=== PATIENT | female | born 1960 | race Caucasian/White ===

== ENCOUNTER 2020-02-06 08:49 | Day surgery (SDC) | payer BC ==
[2020-02-02 09:21] VITALS: BMI 27.8
[2020-02-06] MEDS ORDERED: PROPOFOL 20 ML ONE ×3 (09:40)
[2020-02-06 11:45] VITALS: TEMP 97.7
[2020-02-06 13:48] VITALS: BP 120/79; PULSE 71
--- NOTE | 2020-02-11 12:20 | PATH ---
Surgical Pathology Report Patient Name: ANA MENDOZA [facility]. Rec. #: [id number] /Age/Gender: 1960 (Age: 60) / F Account: [id number] Location: [facility] AMBULATORY Taken: 02/06/2020 Received: 02/06/2020 Reported: 02/11/2020 Physicians: Ana Ball M.D. Specimen(s) Received A: CECUM B: ASCENDING COLON C: PROXIMAL TRANSVERSE COLON D: MID TRANSVERSE COLON E: DISTAL TRANSVERSE COLON (PSEUDOPOLYP) F: DISTAL TRANSVERSE COLON # 2 G: PROXIMAL DESCENDING COLON H: DISTAL DESCENDING COLON I: SIGMOID COLON @ 30 CM J: SIGMOID COLON @ 20 CM K: RECTOSIGMOID L: RECTUM Clinical History Ulcerative colitis Final Diagnosis A. CECUM, BIOPSY: COLONIC MUCOSA WITH NO PATHOLOGIC FINDINGS. NEGATIVE FOR COLITIS. B. ASCENDING COLON, BIOPSY: COLONIC MUCOSA WITH NO PATHOLOGIC FINDINGS. NEGATIVE FOR COLITIS. C. PROXIMAL TRANSVERSE COLON, BIOPSY: COLONIC MUCOSA WITH NO PATHOLOGIC FINDINGS. NEGATIVE FOR COLITIS. D. MID TRANSVERSE COLON, BIOPSY: COLONIC MUCOSA WITH NO PATHOLOGIC FINDINGS. NEGATIVE FOR COLITIS. E. DISTAL TRANSVERSE COLON (PSEUDOPOLYP), BIOPSY: COLONIC MUCOSA SHOWING MILD SURFACE HYPERPLASTIC CHANGE. NEGATIVE FOR COLITIS. F. DISTAL TRANSVERSE COLON #2, BIOPSY: COLONIC MUCOSA WITH NO PATHOLOGIC FINDINGS. NEGATIVE FOR COLITIS. G. PROXIMAL DESCENDING COLON, BIOPSY: COLONIC MUCOSA SHOWING BENIGN/REACTIVE LYMPHOID AGGREGATE. NEGATIVE FOR COLITIS. H. DISTAL DESCENDING COLON, BIOPSY: COLONIC MUCOSA WITH NO PATHOLOGIC FINDINGS. NEGATIVE FOR COLITIS. I. SIGMOID COLON AT 30 CM, BIOPSY: MODERATE CHRONIC ACTIVE COLITIS. NEGATIVE FOR DYSPLASIA. J. SIGMOID COLON AT 20 CM, BIOPSY: MODERATE CHRONIC ACTIVE COLITIS. NEGATIVE FOR DYSPLASIA. K. RECTOSIGMOID, BIOPSY: MODERATE CHRONIC ACTIVE COLITIS. NEGATIVE FOR DYSPLASIA. L. RECTUM, BIOPSY: SEVERE CHRONIC ACTIVE PROCTITIS. NEGATIVE FOR DYSPLASIA. Electronically Signed Emy Haddad M.D. Gross Description A. Received in formalin, labeled "cecum" are 2 steele, irregular portions of soft tissue averaging 0.3 cm. in greatest dimension. The specimens are submitted in toto in one cassette. B. Received in formalin, labeled "ascending colon" are 3 steele, irregular portions of soft tissue ranging from 0.1-0.3 cm. in greatest dimension. The specimens are submitted in toto in one cassette. C. Received in formalin, labeled "proximal transverse colon" are 2 steele, irregular portions of soft tissue measuring 0.4 and 0.5 cm. in greatest dimension. The specimens are submitted in toto in one cassette. D. Received in formalin, labeled "mid transverse colon" are 2 steele, irregular portions of soft tissue measuring 0.1 and 0.3 cm. in greatest dimension. The specimens are submitted in toto in one cassette. E. Received in formalin, labeled "distal transverse colon" are 2 steele, irregular portions of soft tissue measuring 0.2 and 0.3 cm. in greatest dimension. The specimens are submitted in toto in one cassette. F. Received in formalin, labeled "distal transverse colon #2" is a steele, irregular portion of soft tissue measuring 0.3 cm. in greatest dimension. The specimen is submitted in toto in one cassette. G. Received in formalin, labeled "proximal descending colon" are 2 steele, irregular portions of soft tissue measuring 0.3 and 0.6 cm. in greatest dimension. The specimens are submitted in toto in one cassette. H. Received in formalin, labeled "distal descending colon" is a steele, irregular portion of soft tissue measuring 0.3 cm. in greatest dimension. The specimen is submitted in toto in one cassette. I. Received in formalin, labeled "sigmoid at 30 cm" are 2 steele, irregular portions of soft tissue measuring 0.4 and 0.5 cm. in greatest dimension. The specimens are submitted in toto in one cassette. J. Received in formalin, labeled "sigmoid at 20 cm" are 2 steele, irregular portions of soft tissue averaging 0.2 cm. in greatest dimension. The specimens are submitted in toto in one cassette. K. Received in formalin, labeled "rectosigmoid" are 3 steele, irregular portions of soft tissue ranging from 0.2-0.3 cm. in greatest dimension. The specimens are submitted in toto in one cassette. L. Received in formalin, labeled "rectum" is a steele, irregular portion of soft tissue measuring 0.4 cm. in greatest dimension. The specimen is submitted in toto in one cassette. DL02/09/2020 saudi02/09/2020
== END 2020-02-06 12:17 | disposition home or self-care (01) ==
LOC: FASU 08:49
PROVIDERS: ATTEND Internal Medicine Gastroenterology
PROC: 0DBL8ZX Excision of Transverse Colon, Via Natural or Artificial Opening Endoscopic, Diagnostic (ICD-10-PCS; 2020-02-06)
PROC: 0DBN8ZX Excision of Sigmoid Colon, Via Natural or Artificial Opening Endoscopic, Diagnostic (ICD-10-PCS; 2020-02-06)
PROC: 0DBP8ZX Excision of Rectum, Via Natural or Artificial Opening Endoscopic, Diagnostic (ICD-10-PCS; 2020-02-06)
PROC: 0DBM8ZX Excision of Descending Colon, Via Natural or Artificial Opening Endoscopic, Diagnostic (ICD-10-PCS; 2020-02-06)
PROC: 0DBH8ZX Excision of Cecum, Via Natural or Artificial Opening Endoscopic, Diagnostic (ICD-10-PCS; 2020-02-06)
PROC: 0DBK8ZX Excision of Ascending Colon, Via Natural or Artificial Opening Endoscopic, Diagnostic (ICD-10-PCS; principal; 2020-02-06 10:56)
DX: K92.1 Melena (principal); K52.89 Other specified noninfective gastroenteritis and colitis; K64.0 First degree hemorrhoids; K57.30 Diverticulosis of large intestine without perforation or abscess without bleeding; K51.40 Inflammatory polyps of colon without complications; K63.89 Other specified diseases of intestine
CPT/HCPCS: 88305-TC

== ENCOUNTER 2020-10-19 09:37 | Day surgery (SDC) | payer BC ==
[2020-10-11 15:50] VITALS: BMI 30.1
[2020-10-19] MEDS ORDERED: PROPOFOL 20 ML ONE ×3 (11:48→12:18)
[2020-10-19 13:08] VITALS: TEMP 97.4
[2020-10-19 13:25] VITALS: BP 122/72; PULSE 71
== END 2020-10-19 13:25 | disposition home or self-care (01) ==
LOC: FASU-ENDO 09:37
PROVIDERS: ATTEND Internal Medicine Gastroenterology
PROC: 0DB78ZX Excision of Stomach, Pylorus, Via Natural or Artificial Opening Endoscopic, Diagnostic (ICD-10-PCS; 2020-10-19)
PROC: 0DB48ZX Excision of Esophagogastric Junction, Via Natural or Artificial Opening Endoscopic, Diagnostic (ICD-10-PCS; 2020-10-19)
PROC: 0DBL8ZX Excision of Transverse Colon, Via Natural or Artificial Opening Endoscopic, Diagnostic (ICD-10-PCS; 2020-10-19)
PROC: 0DB98ZX Excision of Duodenum, Via Natural or Artificial Opening Endoscopic, Diagnostic (ICD-10-PCS; principal; 2020-10-19 11:55)
DX: K51.90 Ulcerative colitis, unspecified, without complications (principal); K52.9 Noninfective gastroenteritis and colitis, unspecified; K44.9 Diaphragmatic hernia without obstruction or gangrene; D12.3 Benign neoplasm of transverse colon; K64.1 Second degree hemorrhoids; K29.70 Gastritis, unspecified, without bleeding; K31.89 Other diseases of stomach and duodenum; Z87.19 Personal history of other diseases of the digestive system; K22.8 Other specified diseases of esophagus

== ENCOUNTER 2024-04-22 10:28 | Day surgery (SDC) | payer BC ==
[2024-04-17 12:43] VITALS: BMI 25.9
[2024-04-22 13:14] VITALS: RESP 18
[2024-04-22 13:26] VITALS: PULSE 63; TEMP 97.6
[2024-04-22 13:38] VITALS: BP 146/84
== END 2024-04-22 13:39 | disposition home or self-care (01) ==
LOC: FASU-ENDO 10:28
PROVIDERS: ATTEND Internal Medicine Gastroenterology
PROC: 0DBL8ZX Excision of Transverse Colon, Via Natural or Artificial Opening Endoscopic, Diagnostic (ICD-10-PCS; 2024-04-22)
PROC: 0DBN8ZX Excision of Sigmoid Colon, Via Natural or Artificial Opening Endoscopic, Diagnostic (ICD-10-PCS; 2024-04-22)
PROC: 0DBP8ZX Excision of Rectum, Via Natural or Artificial Opening Endoscopic, Diagnostic (ICD-10-PCS; 2024-04-22)
PROC: 0DBM8ZX Excision of Descending Colon, Via Natural or Artificial Opening Endoscopic, Diagnostic (ICD-10-PCS; 2024-04-22)
PROC: 0DBH8ZX Excision of Cecum, Via Natural or Artificial Opening Endoscopic, Diagnostic (ICD-10-PCS; 2024-04-22)
PROC: 0DBK8ZX Excision of Ascending Colon, Via Natural or Artificial Opening Endoscopic, Diagnostic (ICD-10-PCS; principal; 2024-04-22 12:27)
DX: Z87.19 Personal history of other diseases of the digestive system (principal); K51.40 Inflammatory polyps of colon without complications; K64.1 Second degree hemorrhoids
CPT/HCPCS: 88305-TC